=== PATIENT | male | born 1985 | race Caucasian/White ===

== ENCOUNTER 2016-07-02 01:08 | Inpatient (IN) | payer MEDICARE, OTHER ==
[~2016-07-02] VITALS: Ht 180.3 cm; Wt 100.8 kg
[~2016-07-02 01:08] MED LIST: ABIL5TAB6 PO; FOLI1 PO; THIA100T PO
[2016-07-02 02:03] VITALS: BP 116/75; PULSE 78; RESP 18; TEMP 98.4; O2SAT 97
[2016-07-02 02:52] LABS: AUTOMATED NEUTROPHIL # 4.6 TH/MM3 (1.8-7.7); BASOPHIL # 0.1 TH/MM3 (0-0.2); BASOPHIL % 0.8 % (0.0-2.0); EOSINOPHIL # 0.1 TH/MM3 (0-0.4); EOSINOPHIL % 1.6 % (0.0-4.0); HEMO FLAGS DIFF FINAL; LYMPH % 34.4 % (9.0-44.0); LYMPHOCYTE # 2.9 TH/MM3 (1.0-4.8); MEAN CELL VOLUME 85.7 FL (80.0-100.0); MONO % 7.5 % (0.0-8.0); NEUT % 55.7 % (16.0-70.0); PLATELET COUNT 226 TH/MM3 (150-450); RED BLOOD COUNT 5.02 MIL/MM3 (4.50-5.90); RED CELL DISTRIBUTION WIDTH 13.5 % (11.6-17.2); WHITE BLOOD COUNT 8.3 TH/MM3 (4.0-11.0)
[2016-07-02 02:57] LABS: AMPHETAMINE, URINE NEG (NEG); BARBITURATES, URINE NEG (NEG); COCAINE, URINE NEG (NEG)
[2016-07-02 03:10] LABS: BICARBONATE 23.7 MEQ/L (21.0-32.0); POTASSIUM 3.6 MEQ/L (3.5-5.1)
--- NOTE | 2016-07-02 03:12 | PD ---
HPI Chief Complaint: Psychiatric Symptoms Time Seen by Provider: 03:12 Travel History International Travel<30 days: No Contact w/Intl Traveler<30days: No Traveled to known affect area: No History of Present Illness HPI 30-year-old male presents to emergency department under Farfan act for psychiatric evaluation. Patient states that he does not want to discuss why he is here. Denies suicidal or homicidal ideations. Reports occasional marijuana use. Denies any acute medical needs at this time. PFSH Past Medical History Medical History: Unable to Obtain Diminished Hearing: No Immunizations Current: No (UNKNOWN) Past Surgical History Surgical History: No Previous Surgery Social History Alcohol Use: Yes (OCC PER PT) Tobacco Use: Yes (1-2 PPD) Substance Use: No (cocaine, K2 DENIES) Allergies-Medications (Allergen,Severity, Reaction): Coded Allergies: *MDRO Multi-Drug Resistant Organism (Verified Adverse Reaction, Unknown, ) MRSA PCR Positive 02/11/15. Reported Meds & Prescriptions Reported Meds & Active Scripts Active Active Prescriptions or Reported Medications Unobtainable Review of Systems Except as stated in HPI: all other systems reviewed are Neg Physical Exam Narrative GENERAL: Well-nourished male patient, in no acute distress SKIN: Warm and dry. HEAD: Atraumatic. Normocephalic. EYES: Pupils equal and round. No scleral icterus. No injection or drainage. ENT: No nasal bleeding or discharge. Mucous membranes pink and moist. NECK: Trachea midline. No JVD. CARDIOVASCULAR: Regular rate and rhythm. No murmur appreciated. RESPIRATORY: No accessory muscle use. Clear to auscultation. Breath sounds equal bilaterally. GASTROINTESTINAL: Abdomen soft, non-tender, nondistended. Hepatic and splenic margins not palpable. MUSCULOSKELETAL: No obvious deformities. No clubbing. No cyanosis. No edema. NEUROLOGICAL: Awake and alert. No obvious cranial nerve deficits. Motor grossly within normal limits. Normal speech. Data Data Last Documented VS Vital Signs Date Time Temp Pulse Resp B/P Pulse Ox O2 Delivery O2 Flow Rate FiO2 07/02/16 02:03 98.4 78 18 116/75 97 Orders Complete Blood Count With Diff (07/02/16 02:31) Basic Metabolic Panel (Bmp) (07/02/16 02:31) Drug Screen, Random Urine (07/02/16 02:31) Alcohol (Ethanol) (07/02/16 02:31) Psych Screen (07/02/16 02:31) Labs Laboratory Tests Test 07/02/16 07/02/16 02:20 02:25 Urine Opiates Screen NEG Urine Barbiturates Screen NEG Urine Amphetamines Screen NEG Urine Benzodiazepines Screen NEG Urine Cocaine Screen NEG Urine Cannabinoids Screen POS White Blood Count 8.3 TH/MM3 Red Blood Count 5.02 MIL/MM3 Hemoglobin 15.0 GM/DL Hematocrit 43.0 % Mean Corpuscular Volume 85.7 FL Mean Corpuscular Hemoglobin 30.0 PG Mean Corpuscular Hemoglobin 35.0 % Concent Red Cell Distribution Width 13.5 % Platelet Count 226 TH/MM3 Mean Platelet Volume 8.4 FL Neutrophils (%) (Auto) 55.7 % Lymphocytes (%) (Auto) 34.4 % Monocytes (%) (Auto) 7.5 % Eosinophils (%) (Auto) 1.6 % Basophils (%) (Auto) 0.8 % Neutrophils # (Auto) 4.6 TH/MM3 Lymphocytes # (Auto) 2.9 TH/MM3 Monocytes # (Auto) 0.6 TH/MM3 Eosinophils # (Auto) 0.1 TH/MM3 Basophils # (Auto) 0.1 TH/MM3 CBC Comment DIFF FINAL Differential Comment Sodium Level 137 MEQ/L Potassium Level 3.6 MEQ/L Chloride Level 103 MEQ/L Carbon Dioxide Level 23.7 MEQ/L Anion Gap 10 MEQ/L Blood Urea Nitrogen 5 MG/DL Creatinine 0.74 MG/DL Estimat Glomerular Filtration 124 ML/MIN Rate Random Glucose 83 MG/DL Calcium Level 8.6 MG/DL Ethyl Alcohol Level 72 MG/DL MDM Medical Decision Making Medical Screen Exam Complete: Yes Emergency Medical Condition: Yes Medical Record Reviewed: Yes Differential Diagnosis Mood disorder versus personality disorder versus substance abuse versus adjustment reaction disorder Narrative Course 30-year-old male presents to emergency department for psychiatric evaluation. Patient appears without distress. Lab work is without acute abnormality. Patient is medically cleared to undergo psychiatric screening for further evaluation and disposition. Mental health screening discussed with the patient. Psychiatric screen ordered. Diagnosis Primary Impression: Adjustment reaction with aggression Scripts Unable to Obtain Active Prescriptions or Reported Meds Condition: Stable MenjivarBebeSaharakelsie LANDRY Jul 02, 2016 03:12
[2016-07-02 06:11] VITALS: BP 109/55; PULSE 73; RESP 19; O2SAT 97
[2016-07-02 10:50] VITALS: BP 98/47; PULSE 65; RESP 16; O2SAT 94
[2016-07-02 13:35] VITALS: BP 119/56; PULSE 66; RESP 16; O2SAT 92
[2016-07-02] MEDS ORDERED: diphenhydrAMINE HCL 50 MG/ML VIAL IM PRN (14:45)
[2016-07-02] MEDS ORDERED: MAGNESIUM HYDROXIDE SUSP 30 ML CUP PO PRN (14:45)
[2016-07-02] MEDS ORDERED: ACETAMINOPHEN 325 MG TAB PO PRN (14:45)
[2016-07-02] MEDS ORDERED: ALUMINUM/MAGNESIUM/SIMETH 30 ML CUP PO PRN (14:45)
[2016-07-02] MEDS ORDERED: LORazepam 2 MG/ML VIAL IM PRN (14:45)
[2016-07-02 15:33] VITALS: BP 132/75; PULSE 78; RESP 18; TEMP 96.8; O2SAT 96
[2016-07-02 19:22] VITALS: BP 137/75; PULSE 78; RESP 18; TEMP 96.8; O2SAT 96
[2016-07-03 06:17] VITALS: BP 114/57; PULSE 65; RESP 16; TEMP 98
[2016-07-03] MEDS: NICOTINE 21 MG/24 HR PATCH T-DERMAL SCH (08:49)
[2016-07-03 09:13] LABS: ANION GAP 7 MEQ/L (5-15); BICARBONATE 29.3 MEQ/L (21.0-32.0); BLOOD UREA NITROGEN 10 MG/DL (7-18); CHLORIDE 102 MEQ/L (98-107); GLOMERULAR FILTRATION RATE 85 ML/MIN (>89); HDL CHOLESTEROL 55.5 MG/DL (40.0-60.0); LDL CHOLESTEROL 140 MG/DL (0-99); SODIUM (NA) 138 MEQ/L (136-145)
[2016-07-03 11:38] LABS: HEMOGLOBIN A1a 0.9 %; HEMOGLOBIN A1b 1.5 %; HEMOGLOBIN Ao 86.9 %; HEMOGLOBIN LA1C 1.9 %; HEMOGLOBIN P3 3.3 %
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
[2016-07-03] MEDS ORDERED: LORazepam 2 MG TAB PO PRN (12:15)
[2016-07-03] MEDS ORDERED: LORazepam 2 MG/ML VIAL IM PRN ×4 (12:15)
[2016-07-03] MEDS ORDERED: FLUMAZENIL 0.5 MG/5 ML VIAL IV PUSH PRN (12:15)
[2016-07-03] MEDS: LORazepam 1 MG TAB PO PRN ×2 (13:58→23:01)
[2016-07-03] MEDS: ARIPiprazole 5 MG TAB PO SCH (13:58)
[2016-07-03] MEDS: FOLIC ACID 1 MG TAB PO SCH (13:58)
[2016-07-03] MEDS: THIAMINE HCL 100 MG TAB PO SCH (13:58)
--- NOTE | 2016-07-03 15:35 | PD.CONS ---
Provisional Diagnosis Admission Date Jul 02, 2016 at 14:17 [place] I. 1. Other psychotic disorder Rule out primary psychotic disorder such as schizophrenia or schizoaffective disorder. Rule out substance-induced psychotic disorder. 2. Polysubstance abuse including alcohol and cannabis [place] II. Deferred [place] V. GAF is 30 presently History of Present Illness Service Psychiatry Consult Requested By Primary Care Physician HPI Mr. Faust is a 30-year-old male with a history of psychotic disorder and substance use issues who presents under a Farfan act from law enforcement alleging that the patient became violent towards family members. When officers arrived on the scene, patient allegedly asked them to kill him and said that he has not been taking his medications. Reviewing the current electronic medical record, I see no psychiatric contact. However, the patient does have an alternative medical record number, and in that record I note the patient was admitted most recently in December 2014 under my care with discharge diagnoses of psychosis and substance use. He was stabilized on Abilify at that time. Patient seen and examined with counselor. Chart reviewed. Case discussed with nursing staff. 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 He notes that the patient comes from a very chaotic family environment and the patient's mother has schizophrenia and his father is an alcoholic. On my examination today, patient is quite irritable and dysphoric. He initially declines to provide much information regarding history saying "I can't think right now since I got here." He initially flatly denies the allegations in the Farfan act but then later says "I said just shoot me because I was feeling suicidal." He denies any suicidal or homicidal ideation at this time but seems unreliable to contract for safety. He describes his mood as "always the same mood." He does agree that he feels somewhat irritable and edgy but says this only happens " when I talk about things." He insists that it is his family that has the problem and says "that's how the whole argument with my family happen. I was arguing with my junkie brother and my parents chewed me out." He denies any AVH but appears internally preoccupied. He is guarded and fairly paranoid. Sleep is poor. Psychiatric ROS is somewhat limited because of patient's current mental state. Past psychiatric history: Patient reports "they diagnosed me with over 30 things. I don't believe in psychiatry." He is not currently under the care of a psychiatrist nor is he taking any psychiatric medications. He reports his most recent psychiatric admission was a few years ago here, apparently referring to his December, admission. When asked about suicide attempts he says "I don't think so. 07/03/16 Above note dictated by Dr. logan reviewed noted and agreed with. Patient is a 30-year-old white male admitted to Dr. logan service under the CDNlion act. Patient seen by me in the [place] with nurse America and medical student Tish, patient continues paranoid guarded irritable and angry. Dr. logan history first opinion petition supporting Farfan act. I agree. Patient meets criteria for involuntary psychiatric hospitalization under the Farfan act. Thus I will cosign second opinion petition supporting CDNlion act Past Family Social History Coded Allergies: Flexeril (Unverified Allergy, Severe, 12/23/14) Invega Sustenna (Unverified Allergy, Severe, 12/23/14) Latuda (Unverified Allergy, Severe, 12/23/14) Archer (Verified Allergy, Severe, VOMIT, 12/23/14) Paxil (Unverified Allergy, Severe, 12/23/14) Remeron Kassandra-Tab (Unverified Allergy, Severe, 12/23/14) Seroquel (Verified Allergy, Severe, Arrhythmias, 12/23/14) Xanax (Verified Allergy, Severe, 12/23/14) SOB *MDRO Multi-Drug Resistant Organism (Verified Adverse Reaction, Unknown, ) MRSA PCR Positive 02/11/15. Active Scripts Folic Acid (Folate 1 Mg Tab)1 Mg Tab1 Mg PO DAILY #30 TAB Ref 0 Prov:Mike Logan MD 12/26/14 Thiamine HCl 100 Mg [id number] Mg PO DAILY #30 TAB Ref 0 Prov:Mike Logan MD 12/26/14 Aripiprazole (Abilify 5 mg)5 Mg Tab5 Mg PO DAILY #30 TAB Ref 0 Prov:Mike Logan MD 12/26/14 Current Medications Medications (Trade) Dose Ordered Sig/Levi Route Start Time Stop Time Status Last Admin (Ativan) 1 mg Q6H PRN PO 07/02/16 14:45 (Ativan Inj) 1 mg Q6H PRN IM 07/02/16 14:45 (Benadryl) 50 mg Q6H PRN PO 07/02/16 14:45 (Benadryl Inj) 50 mg Q6H PRN IM 07/02/16 14:45 (Desyrel) 50 mg HS PRN PO 07/02/16 14:45 (Tylenol) 650 mg Q4H PRN PO 07/02/16 14:45 (Milk Of Magnesia Liq) 30 ml DAILY PRN PO 07/02/16 14:45 (Mag-Al Plus Susp Liq) 30 ml Q6H PRN PO 07/02/16 14:45 (Habitrol 21 Mg Patch.24 Hr) 1 patch DAILY T-DERMAL 07/03/16 09:00 07/03/16 08:49 Miscellaneous Information 1 HS T-DERMAL 07/03/16 21:00 (Romazicon Inj) 0.2 mg Q1M PRN IV PUSH 07/03/16 12:15 (Ativan) 1 mg Q4H PRN PO 07/03/16 12:15 07/03/16 13:58 (Ativan Inj) 1 mg Q4H PRN IM 07/03/16 12:15 (Ativan) 2 mg Q2H PRN PO 07/03/16 12:15 (Ativan Inj) 2 mg Q2H PRN IM 07/03/16 12:15 (Ativan Inj) 2 mg Q1H PRN IM 07/03/16 12:15 (Ativan Inj) 2 mg Q15M PRN IM 07/03/16 12:15 (Abilify) 5 mg DAILY PO 07/03/16 12:15 07/03/16 13:58 (Vitamin B1) 100 mg DAILY PO 07/03/16 12:12 07/03/16 13:58 (Folate) 1 mg DAILY PO 07/03/16 12:12 07/03/16 13:58 Patient's Strengths (min. 2) In a monitored setting. Verbally fluent. Physical Exam Vital Signs Vital Signs Date Time Temp Pulse Resp B/P Pulse Ox O2 Delivery O2 Flow Rate FiO2 07/03/16 06:17 98.0 65 16 114/57 07/02/16 19:22 96 07/02/16 13:35 Room Air Mental Status Examination Speech: Pressured, Hesitant Orientation: Person, Place Thought Process: Linear Thought Content: Paranoid Hallucination Type: None (vague though denying voices) Attention and Concentration: Other Suicidal Ideation: No Previous Suicide Attempts: No Homicidal Ideation: No Previous Homicide Attempts: No Insight: Poor Judgement: Poor Affect: Other (slight decreased range and intensity) Mood: Irritable, Other (restricted) Motor Activity: Normal gait Assessment & Plan Problem List: (1) Other psychotic disorder not due to a substance or known physiological condition ICD Code: F28 (2) Other psychoactive substance abuse, uncomplicated ICD Code: F19.10 Assessment & Plan Estimated LOS: days Request HC Surrog/Guard Advoc?: Yes Andrade Sanchez MD Jul 03, 2016 15:35
[2016-07-03 20:36] VITALS: BP 126/74; PULSE 62; RESP 16; TEMP 96.8; O2SAT 98
[2016-07-03] MEDS: REMOVE OLD NICOTINE PATCH T-DERMAL SCH (21:00)
[2016-07-04 06:13] VITALS: BP 110/55; PULSE 63; RESP 16; TEMP 98.2; O2SAT 96
[2016-07-04] MEDS: NICOTINE 21 MG/24 HR PATCH T-DERMAL SCH (09:17)
[2016-07-04] MEDS: FOLIC ACID 1 MG TAB PO SCH (09:18)
[2016-07-04] MEDS: REMOVE OLD NICOTINE PATCH T-DERMAL SCH (09:18)
[2016-07-04] MEDS: THIAMINE HCL 100 MG TAB PO SCH (09:18)
[2016-07-04] MEDS: ARIPiprazole 5 MG TAB PO SCH (09:18)
--- NOTE | 2016-07-04 10:12 | HHI.PYPN ---
Subjective Remarks Patient seen and examined with counselor. Chart reviewed. Case discussed with nursing staff reports patient had been somewhat angry earlier today. Patient, on my examination today, agrees that he continues to struggle with irritability but is proud that he was able to ask for a PRN when he needed one. He says that he was somewhat agitated because of one of the other patients on the unit. He denies any homicidal or suicidal ideation. He denies any audiovisual hallucinations. Mood is somewhat dysphoric and the patient notes "my future is bleak because of the people I live with." He notes that he has been on Abilify in the past and found it helpful and he was on a dose as high as 30 mg daily. Denies side effects from medications. Review of Systems Other No physical complaints today Objective Alert: Yes [place]: Person, Place, Date Mood: Other (Irritable) Affect: Restricted (dysphoric but somewhat less so) Memory Intact: Comment (Intact on clinical exam) Hallucinations: Other (No AVH) Delusions: No Delusion Type: Other (No delusions) Suicidal: Ideation (Denies SI) Homicidal: Ideation (Denies HI) Insight/Judgement [id number] Remarks Thought process linear. No signs of withdrawal noted. Labs Labs reviewed. Vitals/IOs Vital Signs Date Time Temp Pulse Resp B/P Pulse Ox O2 Delivery O2 Flow Rate FiO2 07/04/16 06:13 98.2 63 16 110/55 96 07/02/16 13:35 Room Air Assessment & Plan Problem List: (1) Other psychotic disorder not due to a substance or known physiological condition ICD Code: F28 (2) Other psychoactive substance abuse, uncomplicated ICD Code: F19.10 Assessment & Plan Titrate Abilify over the weekend. Continue other medications and care as ordered. Justification for Cont. Inpt. Risk for decompensation. Discharge Planning Pending psychiatric stabilization. Given that patient finds residing with his family so stressful we discussed alternative placement options including a therapeutic work community like [facility]. Request HC Surrog/Guard Advoc?: Yes Mike Logan MD Jul 04, 2016 10:11
[2016-07-04 19:54] VITALS: BP 139/75; PULSE 82; RESP 18; TEMP 98.2; O2SAT 100
[2016-07-04] MEDS: LORazepam 1 MG TAB PO PRN (20:44)
[2016-07-04] MEDS: traZODone HCL 50 MG TAB PO PRN (20:44)
[2016-07-05 06:14] VITALS: BP 139/77; PULSE 72; RESP 16; TEMP 98.3; O2SAT 99
[2016-07-05] MEDS: FOLIC ACID 1 MG TAB PO SCH (09:01)
[2016-07-05] MEDS: THIAMINE HCL 100 MG TAB PO SCH (09:01)
[2016-07-05] MEDS: ARIPiprazole 5 MG TAB PO SCH (09:02)
[2016-07-05] MEDS: NICOTINE 21 MG/24 HR PATCH T-DERMAL SCH (09:02)
[2016-07-05] MEDS: LORazepam 1 MG TAB PO PRN (15:09)
--- NOTE | 2016-07-05 16:44 | HHI.PYPN ---
Subjective Remarks Patient was seen and case discussed with nursing. Patient is pleasant and cooperative with exam. Compliant with medications. Says he was agitated this morning because of an uncertain and bleak future. Patient has an irritable edge about him. He denies auditory or visual hallucinations. Denies suicidal ideations thought or plan. Per nursing is been behaving well going outside going to groups Objective Alert: Yes [place]: Person, Place, Date Mood: Other (Irritable) Affect: Restricted (dysphoric but somewhat less so) Memory Intact: Comment (Intact on clinical exam) Hallucinations: Other (No AVH) Delusions: No Delusion Type: Other (No delusions) Suicidal: Ideation (Denies SI) Homicidal: Ideation (Denies HI) Insight/Judgement Poor Vitals/IOs Vital Signs Date Time Temp Pulse Resp B/P Pulse Ox O2 Delivery O2 Flow Rate FiO2 07/05/16 06:14 98.3 72 16 139/77 99 07/02/16 13:35 Room Air Assessment & Plan Problem List: (1) Other psychotic disorder not due to a substance or known physiological condition ICD Code: F28 (2) Other psychoactive substance abuse, uncomplicated ICD Code: F19.10 Assessment & Plan Continue current treatment plan Justification for Cont. Inpt. Patient will decompensate in a less restrictive setting Request HC Surrog/Guard Advoc?: Yes Conner Hdz DO Jul 05, 2016 16:44
[2016-07-05 19:35] VITALS: BP 130/71; PULSE 76; RESP 18; TEMP 98.4; O2SAT 98
[2016-07-05] MEDS: REMOVE OLD NICOTINE PATCH T-DERMAL SCH (21:00)
[2016-07-05] MEDS: traZODone HCL 50 MG TAB PO PRN (21:00)
[2016-07-06 05:45] VITALS: BP 134/70; PULSE 77; RESP 17; TEMP 97.9; O2SAT 98
[2016-07-06] MEDS: NICOTINE 21 MG/24 HR PATCH T-DERMAL SCH (09:00)
[2016-07-06] MEDS: FOLIC ACID 1 MG TAB PO SCH (09:32)
[2016-07-06] MEDS: THIAMINE HCL 100 MG TAB PO SCH (09:33)
[2016-07-06] MEDS: ARIPiprazole 5 MG TAB PO SCH (09:33)
[2016-07-06] MEDS: REMOVE OLD NICOTINE PATCH T-DERMAL SCH (09:34)
[2016-07-06] MEDS: LORazepam 1 MG TAB PO PRN ×3 (09:37→20:39)
--- NOTE | 2016-07-06 15:01 | HHI.PYPN ---
Subjective Remarks Patient was seen and case discussed with nursing. Patient is pleasant and cooperative with exam. Patient remains hopeless towards the future. He says he feels targeted by the police and others and is always getting in trouble. Largely seclusive to self. Compliant with medications. Denies suicidal ideations thought or intent or plan Objective Alert: Yes [place]: Person, Place, Date Mood: Other (Irritable) Affect: Restricted (dysphoric but somewhat less so) Memory Intact: Comment (Intact on clinical exam) Hallucinations: Other (No AVH) Delusions: No Delusion Type: Other (No delusions) Suicidal: Ideation (Denies SI) Homicidal: Ideation (Denies HI) Insight/Judgement Poor Vitals/IOs Vital Signs Date Time Temp Pulse Resp B/P Pulse Ox O2 Delivery O2 Flow Rate FiO2 07/06/16 05:45 97.9 77 17 134/70 98 07/02/16 13:35 Room Air Assessment & Plan Problem List: (1) Other psychotic disorder not due to a substance or known physiological condition ICD Code: F28 (2) Other psychoactive substance abuse, uncomplicated ICD Code: F19.10 Assessment & Plan Continue current treatment plan Justification for Cont. Inpt. Patient will decompensate in a less restrictive setting Request HC Surrog/Guard Advoc?: Yes Conner Hdz DO Jul 06, 2016 15:01
[2016-07-06 19:38] VITALS: BP 124/75; PULSE 72; RESP 18; TEMP 97.8; O2SAT 98
[2016-07-06] MEDS: traZODone HCL 50 MG TAB PO PRN (20:39)
[2016-07-07 05:31] VITALS: BP 125/65; PULSE 76; RESP 18; TEMP 97.7; O2SAT 95
[2016-07-07] MEDS: ARIPiprazole 5 MG TAB PO SCH ×2 (08:36→09:00)
[2016-07-07] MEDS: THIAMINE HCL 100 MG TAB PO SCH (09:11)
[2016-07-07] MEDS: NICOTINE 21 MG/24 HR PATCH T-DERMAL SCH (09:11)
[2016-07-07] MEDS: FOLIC ACID 1 MG TAB PO SCH (09:11)
[2016-07-07] MEDS: LORazepam 1 MG TAB PO PRN ×2 (09:15→20:57)
--- NOTE | 2016-07-07 14:25 | HHI.PYPN ---
Subjective Remarks Patient seen and examined with counselor and nurse. Chart reviewed. Case discussed with nursing staff. On my examination today, the patient reports that his irritability is decreasing. He is sleeping better with the benefit of medications. He denies any SI or HI. He denies any audiovisual hallucinations. Denies any side effects from medications. Hopeful for discharge within the next day or so. Says that he has thought about going into a therapeutic farm type program but would prefer for the time being just to return home with his family. Long-term goal is to get his disability started up again and get his own apartment. Review of Systems Other No physical complaints today Objective Alert: Yes [place]: Person, Place, Date Mood: Calm Affect: Blunted Memory Intact: Comment (intact) Hallucinations: Other (denies audiovisual hallucinations) Delusions: No Delusion Type: Other (no delusional material) Suicidal: Ideation (denies suicidal ideation) Homicidal: Ideation (denies homicidal ideation) Insight/Judgement Fair Remarks No abnormal motor movements noted. No signs of withdrawal noted. Labs Labs reviewed. No new labs. Vitals/IOs Vital Signs Date Time Temp Pulse Resp B/P Pulse Ox O2 Delivery O2 Flow Rate FiO2 07/07/16 05:31 97.7 76 18 125/65 95 Assessment & Plan Problem List: (1) Other psychotic disorder not due to a substance or known physiological condition ICD Code: F28 (2) Other psychoactive substance abuse, uncomplicated ICD Code: F19.10 Assessment & Plan Titrate Abilify to 20 mg daily. Continue other medications and care as ordered. Justification for Cont. Inpt. Monitor overnight Discharge Planning Anticipate discharge tomorrow barring some clinical worsening. Request HC Surrog/Guard Advoc?: Yes Mike Logan MD Jul 07, 2016 14:25
[2016-07-07 17:48] VITALS: BP 122/56; PULSE 77; RESP 18; TEMP 98.2; O2SAT 95
[2016-07-07] MEDS: traZODone HCL 50 MG TAB PO PRN (20:56)
[2016-07-07] MEDS: REMOVE OLD NICOTINE PATCH T-DERMAL SCH (20:58)
[2016-07-08 05:23] VITALS: BP 133/63; PULSE 65; RESP 18; TEMP 97.2; O2SAT 96
[2016-07-08] MEDS: THIAMINE HCL 100 MG TAB PO SCH (09:28)
[2016-07-08] MEDS: NICOTINE 21 MG/24 HR PATCH T-DERMAL SCH (09:28)
[2016-07-08] MEDS: FOLIC ACID 1 MG TAB PO SCH (09:28)
[2016-07-08] MEDS: LORazepam 1 MG TAB PO PRN ×2 (11:17→17:29)
--- NOTE | 2016-07-08 12:36 | HHI.PYPN ---
Subjective Remarks Patient seen and examined with counselor and nursing staff in treatment team. Chart reviewed. Case discussed with counselor, nursing staff and occupational therapist. Per nursing staff, patient has been no behavioral problem. Per occupational therapist, patient has been attending groups and has been fairly quiet. On my examination today, the patient denies any subjective withdrawal. He remains somewhat paranoid. He remains easily irritable with poor frustration tolerance. He becomes explosively angry after I suggest that we reach out to his parents to ensure that it is ok for him to return there, since he does not want counselor to assist with alternative placement. He stalks over to the nursing staff and demands something to calm himself down. No side effects from medications. Review of Systems ROS Limitations: Poor Historian Other No somatic complaints. Objective Alert: Yes [place]: Person, Place, Date Mood: Agitated Affect: Restricted (dysphoric) Memory Intact: Comment (intact) Hallucinations: Other (No AVH) Delusions: Yes Delusion Type: Paranoid Suicidal: Ideation (No SI) Homicidal: Ideation (No HI) Insight/Judgement Poor Remarks No abnormal motor movements noted. Thought process seems fairly linear. Speech within normal limits for rate, tone and volume initially but grows loud and angry as above. Labs Labs reviewed. No new labs. Vitals/IOs Vital Signs Date Time Temp Pulse Resp B/P Pulse Ox O2 Delivery O2 Flow Rate FiO2 07/08/16 05:23 97.2 65 18 133/63 96 Assessment & Plan Problem List: (1) Other psychotic disorder not due to a substance or known physiological condition ICD Code: F28 (2) Other psychoactive substance abuse, uncomplicated ICD Code: F19.10 Assessment & Plan Patient remains too irritable for safe discharge at this time. Titrate Abilify. Continue other medications and care as ordered. Justification for Cont. Inpt. Concern for impairments in safety. Impairments in social function. Risk for decompensation in a less restrictive environment. Discharge Planning Pending psychiatric stabilization. Request HC Surrog/Guard Advoc?: Yes Mike Logan MD Jul 08, 2016 12:35
[2016-07-08] MEDS: traZODone HCL 50 MG TAB PO PRN (20:21)
[2016-07-08] MEDS: REMOVE OLD NICOTINE PATCH T-DERMAL SCH (20:22)
[2016-07-09 06:05] VITALS: BP 119/68; PULSE 66; RESP 16; TEMP 97.4; O2SAT 95
[2016-07-09] MEDS: THIAMINE HCL 100 MG TAB PO SCH (09:00)
[2016-07-09] MEDS: ARIPiprazole 30 MG TAB PO SCH (09:00)
[2016-07-09] MEDS: FOLIC ACID 1 MG TAB PO SCH (09:00)
[2016-07-09] MEDS: NICOTINE 21 MG/24 HR PATCH T-DERMAL SCH (09:00)
[2016-07-09] MEDS: diphenhydrAMINE HCL 50 MG CAP PO PRN ×2 (09:38→21:25)
--- NOTE | 2016-07-09 09:48 | HHI.PYPN ---
Subjective Remarks Patient seen and examined with counselor. Chart reviewed. Case discussed with nursing staff. On my examination today, the patient is initially somewhat angry and hostile having been served with [employer] paperwork. He does calm down a little bit during the course of our discussion and says, "I still have agitation real bad." He feels like the Abilify is helping somewhat and says that Haldol, reportedly efficacious per counselor per father, has helped for this in the past as well. He did like to give the Abilify more of a try first. Denies side effects from medications. No other issues noted. Review of Systems Other No somatic complaints today Objective Alert: Yes [place]: Person, Place, Date Mood: Angry (initially) Affect: Restricted (dysphoric) Memory Intact: Comment (intact) Hallucinations: Other (None) Delusions: Yes Delusion Type: Paranoid (?less) Suicidal: Ideation (No SI) Homicidal: Ideation (No HI) Insight/Judgement Poor Remarks No abnormal motor movements noted. Thought process linear. Speech somewhat terse but otherwise within normal limits for rate, tone and volume. Labs Labs reviewed. No new labs. Vitals/IOs Vital Signs Date Time Temp Pulse Resp B/P Pulse Ox O2 Delivery O2 Flow Rate FiO2 07/09/16 06:05 97.4 66 16 119/68 95 Assessment & Plan Problem List: (1) Other psychotic disorder not due to a substance or known physiological condition ICD Code: F28 (2) Other psychoactive substance abuse, uncomplicated ICD Code: F19.10 Assessment & Plan Continue Abilify as ordered for now. To consider augmenting with Haldol or some other agent if Abilify alone is not adequate to manage patient's irritability. Continue other medications and care as ordered. Justification for Cont. Inpt. Risk for decompensation. Discharge Planning Pending psychiatric stabilization. Request HC Surrog/Guard Advoc?: Yes Mike Logan MD Jul 09, 2016 09:48
[2016-07-09] MEDS: LORazepam 1 MG TAB PO PRN (13:19)
[2016-07-09 19:54] VITALS: BP 131/64; PULSE 87; RESP 18; TEMP 97.8; O2SAT 96
[2016-07-09] MEDS: REMOVE OLD NICOTINE PATCH T-DERMAL SCH (21:00)
[2016-07-09] MEDS: traZODone HCL 50 MG TAB PO PRN (21:25)
[2016-07-10 05:47] VITALS: BP 107/53; PULSE 65; RESP 16; TEMP 97.9; O2SAT 97
[2016-07-10] MEDS: NICOTINE 21 MG/24 HR PATCH T-DERMAL SCH (09:00)
[2016-07-10] MEDS: ARIPiprazole 30 MG TAB PO SCH (09:00)
[2016-07-10] MEDS: FOLIC ACID 1 MG TAB PO SCH (09:00)
[2016-07-10] MEDS: THIAMINE HCL 100 MG TAB PO SCH (09:00)
[2016-07-10] MEDS: REMOVE OLD NICOTINE PATCH T-DERMAL SCH (09:04)
[2016-07-10] MEDS ORDERED: ABIL30TA2 PO (12:02)
--- NOTE | 2016-07-10 12:02 | HHI.DS ---
Psychiatry Discharge Summary Inpatient Psychiatric care?: Yes Advance Directive: No Reason Not Provided: DOESN'T HAVE ONE Mental Health AdvanceDirective: No Health Care Proxy: No Admission Admission Date Jul 02, 2016 at 14:17 Admission Diagnosis: (1) Other psychotic disorder not due to a substance or known physiological condition ICD Code: F28 (2) Other psychoactive substance abuse, uncomplicated ICD Code: F19.10 Brief History Mr. Faust is a 30-year-old male with a history of psychotic disorder and substance use issues who presents under a [place]fan act from law enforcement alleging that the patient became violent towards family members. When officers arrived on the scene, patient allegedly asked them to kill him and said that he has not been taking his medications. Reviewing the current electronic medical record, I see no psychiatric contact. However, the patient does have an alternative medical record number, and in that record I note the patient was admitted most recently in December 2014 under my care with discharge diagnoses of psychosis and substance use. He was stabilized on Abilify at that time. Patient seen and examined with counselor. Chart reviewed. Case discussed with nursing staff. 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 He notes that the patient comes from a very chaotic family environment and the patient's mother has schizophrenia and his father is an alcoholic. On my examination today, patient is quite irritable and dysphoric. He initially declines to provide much information regarding history saying "I can't think right now since I got here." He initially flatly denies the allegations in the Farfan act but then later says "I said just shoot me because I was feeling suicidal." He denies any suicidal or homicidal ideation at this time but seems unreliable to contract for safety. He describes his mood as "always the same mood." He does agree that he feels somewhat irritable and edgy but says this only happens " when I talk about things." He insists that it is his family that has the problem and says "that's how the whole argument with my family happen. I was arguing with my junkie brother and my parents chewed me out." He denies any AVH but appears internally preoccupied. He is guarded and fairly paranoid. Sleep is poor. Psychiatric ROS is somewhat limited because of patient's current mental state. Past psychiatric history: Patient reports "they diagnosed me with over 30 things. I don't believe in psychiatry." He is not currently under the care of a psychiatrist nor is he taking any psychiatric medications. He reports his most recent psychiatric admission was a few years ago here, apparently referring to his December, admission. When asked about suicide attempts he says "I don't think so. 07/03/16 Above note dictated by Dr. logan reviewed noted and agreed with. Patient is a 30-year-old white male admitted to Dr. logan service under the Farfan act. Patient seen by me in the [place] with nurse America and medical student Tish, patient continues paranoid guarded irritable and angry. Dr. logan history first opinion petition supporting Farfan act. I agree. Patient meets criteria for involuntary psychiatric hospitalization under the Farfan act. Thus I will cosign second opinion petition supporting Farfan act Tobacco Use In Past 30 Days: 5 or More Cigarettes/Day Alcohol Use: 2-3 Times Per Week Hospital Course Patient was admitted to a locked, inpatient psychiatric unit. Appropriate precautions were in place throughout patient's hospital stay. Patient was seen and examined daily on the unit by psychiatry and also visited by counselor. Medications were adjusted. Patient tolerated medications well without side effects. The patient generally seem to have poor frustration tolerance and had some behavioral outbursts on the unit as a consequence of this. There was no evidence of any suicidality or homicidality on the unit however. Patient was compliant with medications. Patient was placed on the CIWA scale for the management of any withdrawal but scores were generally low. On the day of discharge: Patient's case was discussed with nursing staff. Chart was reviewed. Patient's case was presented to the [facility] medical act court. Patient's parents were in attendance. The instructional design technologist ordered the patient's release from the inpatient psychiatric unit today. He is declining voluntary psychiatric admission. I will arrange for his discharge today with psychiatric follow-up as arranged by counselor. Patient is also to follow-up with primary care. Results Blood Pressure 107 / 53 Vital Signs Date Time Temp Pulse Resp B/P Pulse Ox O2 Delivery O2 Flow Rate FiO2 07/10/16 05:47 97.9 65 16 107/53 97 Item Value Date Time White Blood Count 8.3 TH/MM3 07/02/16224 Hemoglobin 15.0 GM/DL 07/02/16224 Platelet Count 226 TH/MM3 07/02/16224 Sodium Level 138 MEQ/L 07/03/16805 Potassium Level 4.0 MEQ/L 07/03/16805 Chloride Level 102 MEQ/L 07/03/16805 Carbon Dioxide Level 29.3 MEQ/L 07/03/16805 Blood Urea Nitrogen 10 MG/DL 07/03/16 08 Creatinine 1.03 MG/DL 07/03/16 08 Hemoglobin A1c 4.9 % 07/03/16805 Ethyl Alcohol Level 72 MG/DL H 07/02/16224 Urine Cannabinoids Screen POS H 07/02/16219 Summary of Procedures None done Imaging None done Pending results at discharge: No Medications # of Antipsychotic meds at D/C: 1 Approp Antipsych med options 1 - Minimum of three failed multiple trials of monotherapy. 2 - Documented plan to taper to monotherapy due to previous use of multiple meds OR cross-taper in progress at D/C. 3 - Documentation of augmentation of Clozapine. 4 - Justification other than those listed in allowable values 1-3, document here : Discharge Discharge Date: Jul 10, 2016 Discharge Diagnosis: (1) Other psychotic disorder not due to a substance or known physiological condition Diagnosis: Principal (improved versus admission) ICD Code: F28 (2) Other psychoactive substance abuse, uncomplicated Diagnosis: Secondary ICD Code: F19.10 GAF on discharge is 50 Mental Status Exam at Disch Patient is casually dressed. He is well groomed. He is awake and alert and oriented to person and hospital at least. No abnormal motor movements noted. No signs of withdrawal noted. Speech is within normal limits for rate, tone and volume. Mood and affect are blunted. Thought process linear. No loosening of associations. No michael delusions. No AVH. No SI or HI voiced. Insight and judgment are poor. Pt Condition on Discharge: Guarded Discharge Disposition: Discharge Home Discharge Instructions Diet Instructions: As Tolerated, No Restrictions Activities you can perform: Weight Bearing as Liya Scheduled Appointment: as per counselor's notes New Medications: Aripiprazole (Abilify) 30 Mg Tab 30 MG PO DAILY Mental Health Days 15 Ref 1 TAB Continued Medications: Folic Acid (Folate 1 Mg Tab) 1 Mg Tab 1 MG PO DAILY vitamin supplement #30 Ref 0 TAB Thiamine HCl (Thiamine HCl) 100 Mg Tab 100 MG PO DAILY vitamin supplement #30 Ref 0 TAB Discontinued Medications: Aripiprazole (Abilify 5 mg) 5 Mg Tab 5 MG PO DAILY mental health #30 Ref 0 TAB Discharge Time <= 30 minutes Discharge/Advance Care Plan Health Problems: (1) Other psychotic disorder not due to a substance or known physiological condition (2) Other psychoactive substance abuse, uncomplicated Goals to promote your health * To prevent worsening of your condition and complications * To maintain your health at the optimal level Directions to meet your goals Take your medications as prescribed Follow your dietary instruction Follow activity as directed Keep your appointments as scheduled Take your immunizations and boosters as scheduled If your symptoms worsen call your PCP, if no PCP go to Urgent Care Center or Emergency Room For 15/12 questions related to your inpatient stay or results of tests pending at discharge, please contact Dr. Mike Logan at Smoking is Dangerous to Your Health. Avoid second hand smoking Mike Logan MD Jul 10, 2016 12:02
== END 2016-07-10 13:15 | disposition home or self-care (01) | DRG 885 ==
LOC: NEPA 01:08 → MERGE 14:17 → NEDA 14:17 → H270 15:00
PROVIDERS: ADMIT Psychiatry & Neurology Psychiatry; ATTEND Psychiatry & Neurology Psychiatry
DX: F29 Unspecified psychosis not due to a substance or known physiological condition (principal); R45.851 Suicidal ideations; F19.10 Other psychoactive substance abuse, uncomplicated; F43.20 Adjustment disorder, unspecified; F12.90 Cannabis use, unspecified, uncomplicated; F17.210 Nicotine dependence, cigarettes, uncomplicated; Z81.8 Family history of other mental and behavioral disorders; Z81.1 Family history of alcohol abuse and dependence
CPT/HCPCS: 80048; 80061; 80307; 80320; 83036; 85025; 99285; Q0163